=== PATIENT | male | born 1955 | race Caucasian/White ===

== ENCOUNTER → 2023-07-24 13:52 | Outpatient (REF) | payer MEDICARE, SELFPAY | LOC: RAD 13:52 | PROVIDERS: ATTENDING PHYSICIAN Surgery; FAMILY PHYSICIAN Family Medicine | DX: K40.90 Unilateral inguinal hernia, without obstruction or gangrene, not specified as recurrent (principal) | CPT/HCPCS: 72193; Q9967 ==

== ENCOUNTER → 2023-07-31 07:33 | Outpatient (REF) | payer MEDICARE, SELFPAY | LOC: EMG 07:33 | PROVIDERS: ATTENDING PHYSICIAN Orthopaedic Surgery Hand Surgery | DX: R20.0 Anesthesia of skin (principal); G56.01 Carpal tunnel syndrome, right upper limb | CPT/HCPCS: 95886; 95909 ==

== ENCOUNTER → 2023-09-17 06:22 | Day surgery (SDC) | payer MEDICARE, SELFPAY ==
[2023-09-17 12:12] LABS: Glucose - Point of Care 94 mg/dl (70-99)
== END ==
LOC: GI 06:22
PROVIDERS: ATTENDING PHYSICIAN Internal Medicine; FAMILY PHYSICIAN Family Medicine
DX: Z12.11 Encounter for screening for malignant neoplasm of colon (principal); D12.2 Benign neoplasm of ascending colon; K63.5 Polyp of colon; K57.30 Diverticulosis of large intestine without perforation or abscess without bleeding; K62.1 Rectal polyp; K56.2 Volvulus; Z86.010 Personal history of colon polyps
CPT/HCPCS: 45385; 45380; 88305; 82962

== ENCOUNTER → 2023-11-14 14:32 | Outpatient (REF) | payer MEDICARE, SELFPAY | LOC: RAD 14:32 | PROVIDERS: ATTENDING PHYSICIAN Family Medicine | DX: M25.562 Pain in left knee (principal) | CPT/HCPCS: 73564 ==

== ENCOUNTER → 2024-03-09 16:34 | Outpatient (REF) | payer MEDICARE, SELFPAY | LOC: RAD 16:34 | PROVIDERS: ATTENDING PHYSICIAN Family Medicine | DX: R10.821 Right upper quadrant rebound abdominal tenderness (principal) | CPT/HCPCS: 74178; Q9967 ==

== ENCOUNTER → 2024-06-17 16:29 | Outpatient (REF) | payer MEDICARE, SELFPAY | LOC: RAD 16:29 | PROVIDERS: ATTENDING PHYSICIAN Family Medicine | DX: M79.606 Pain in leg, unspecified (principal) | CPT/HCPCS: 77073 ==

== ENCOUNTER → 2024-12-04 15:38 | Outpatient (REF) | payer MEDICARE, SELFPAY ==
[2024-12-04 16:29] LABS: Hematocrit 45.5 % (39.0-52.0); Hemoglobin 15.4 g/dL (13.0-18.0); Mean Corp Hgb Conc. 33.8 g/dL (33.0-37.0); Mean Corpuscular Volume 85.5 fL (80.0-94.0); Nucleated Red Blood Cells % 0 % (-); Platelet Count 268 10^3/uL (130-400); Red Cell Dist. Width 13.2 % (11.5-14.5)
[2024-12-04 16:43] LABS: Blood Urea Nitrogen 30 mg/dl (9-20); Calcium 10.5 mg/dl (8.4-10.2); Carbon Dioxide 26 mmol/L (22-30); Chloride 107 mmol/L (98-107); Glucose 87 mg/dl (70-99); Potassium 4.7 mmol/L (3.5-5.1); Sodium 142 mmol/L (135-145); eGFR > 60.00
== END ==
LOC: REG 15:38
PROVIDERS: ATTENDING PHYSICIAN Orthopaedic Surgery Hand Surgery; FAMILY PHYSICIAN Family Medicine
DX: Z01.818 Encounter for other preprocedural examination (principal)
CPT/HCPCS: 36415; 80048; 85025; 93005

== ENCOUNTER 2025-02-01 06:58 | Outpatient (RCR) | payer MEDICARE, SELFPAY | END 2025-02-01 23:59 | disposition home or self-care (01) | LOC: ROT 06:58 | PROVIDERS: ATTENDING PHYSICIAN Orthopaedic Surgery Hand Surgery; FAMILY PHYSICIAN Family Medicine | DX: Z47.89 Encounter for other orthopedic aftercare (principal); M65.322 Trigger finger, left index finger; Z73.6 Limitation of activities due to disability | CPT/HCPCS: 97166; 97535 ==